=== PATIENT | female | born 1965 | race Caucasian/White ===

== ENCOUNTER → 2017-04-19 | Outpatient (CLI) | payer BC | LOC: FIMAGING 09:11 | PROVIDERS: ATTEND Obstetrics & Gynecology | DX: Z12.31 Encounter for screening mammogram for malignant neoplasm of breast (principal) | CPT/HCPCS: G0202 ==

== ENCOUNTER 2018-08-16 08:06 | Emergency (ER) | payer BC ==
--- NOTE | 2018-08-16 08:31 | EDPHY ---
H & P Stated Complaint: Arm numbness, chest tightness Time Seen by Provider: 08/16/18 08:31 HPI/ROS: CHIEF COMPLAINT: Chest pressure, paresthesias, abdominal pain HISTORY OF PRESENT ILLNESS: The patient presents the ED for evaluation of right -sided chest discomfort, mild dyspnea and right arm paresthesias. She reportedly developed the symptoms yesterday. She awoke 1 o'clock in the morning with right lower quadrant and right lower chest pain. There was associated dyspnea. It was mildly pleuritic in nature. The patient did report some posterior thigh cramping yesterday. She denies any history of prolonged immobilization or recent travel. The patient denies fever, cough or congestion. She exercises frequently without chest pain or shortness of breath. The patient did have similar symptoms in December which she did not seek care for. At that time she was having more right upper quadrant pain. The patient's surgical history is significant only for uterine polyps. REVIEW OF SYSTEMS: A comprehensive 10 point review of systems is otherwise negative aside from elements mentioned in the history of present illness. Source: Patient Exam Limitations: No limitations - Personal History LMP (Females 10-55): Now Current Tetanus/Diphtheria Vaccine: Yes Current Tetanus Diphtheria and Acellular Pertussis (TDAP): Yes - Medical/Surgical History Hx Asthma: No Hx Chronic Respiratory Disease: No Hx Diabetes: No Hx Cardiac Disease: No Hx Renal Disease: No Hx Cirrhosis: No Hx Alcoholism: No Hx HIV/AIDS: No Hx Splenectomy or Spleen Trauma: No Other PMH: uterine polyp, PNA, - Social History Smoking Status: Never smoked - Physical Exam Exam: General Appearance: Alert, no distress Eyes: Pupils equal and round no pallor or injection ENT, Mouth: Mucous membranes moist Respiratory: There are no retractions, lungs are clear to auscultation Cardiovascular: Regular rate and rhythm Gastrointestinal: Minimal tenderness to palpation right upper quadrant Neurological: A&O, normal motor function, normal sensory exam, normal cranial nerves Skin: Warm and dry, no rashes Musculoskeletal: Neck is supple nontender Extremities: symmetrical, full range of motion Constitutional: Initial Vital Signs Temperature (C) 36.9 C 08/16/18 08:12 Heart Rate 84 08/16/18 08:12 Respiratory Rate 16 08/16/18 08:12 Blood Pressure 136/80 H 08/16/18 08:12 O2 Sat (%) 97 08/16/18 08:12 O2 Delivery Mode Room Air Allergies/Adverse Reactions: No Known Allergies Allergy (Unverified 08/16/18 08:11) Home Medications: Medication Instructions Recorded Aspirin 08/16/18 Medical Decision Making - Diagnostics EKG Interpretation: EKG: Complete interpretation has been separately recorded in the [facility] archive. Summary impression: Sinus rhythm, incomplete right bundle branch block Imaging Results: Imaging Impressions Abdomen Ultrasound 08/16/18 08:45 Impression: Normal. No cholelithiasis, biliary dilation, hydronephrosis, or free fluid. Findings discussed with Emergency Department physician, Reji Virk, on at 9:29 a.m. ED Course/Re-evaluation: The patient presents to the ED for evaluation of abdominal pain and chest pain. The patient complains primarily of right lower chest pain and right upper quadrant pain. She had mild right upper quadrant tenderness on exam. The patient's EKG demonstrated a incomplete right bundle branch block. She had no hypoxemia or tachycardia. Patient's D-dimer is negative which I feel adequately excludes pulmonary embolism. The patient's EKG demonstrates no evidence of ischemia and her troponin is normal. The patient's liver function tests and lipase are also normal. She underwent a right upper quadrant ultrasound which demonstrated no evidence of gallbladder disease. I re-evaluated the patient at 10:15 a.m.. I informed her that I see no obvious explanation for her right-sided abdominal pain and chest pain. My clinical suspicion for acute coronary syndrome is low. I re-evaluated the patient at 11:00 a.m.. I have informed her that I see no obvious explanation for her symptoms. She is now asymptomatic. 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 At this point time I do feel the patient can be discharged home. She will follow up with her primary care provider Dr. Smallwood. She is given customary aftercare instructions and return precautions. Differential Diagnosis: Differential diagnosis considered includes biliary colic, pulmonary embolism, acute coronary syndrome, dehydration, esophageal spasm, metabolic derangement - Data Points Laboratory Results: Laboratory Results 08/16/18 08:35 08/16/18 08:35 08/16/18 08/16/18 08/16/18 08:44 08:35 08:35 WBC RBC Hgb Hct MCV MCH MCHC RDW Plt Count MPV Neut % (Auto) Lymph % (Auto) Sabine % (Auto) Eos % (Auto) Baso % (Auto) Nucleat RBC Rel Count Absolute Neuts (auto) Absolute Lymphs (auto) Absolute Monos (auto) Absolute Eos (auto) Absolute Basos (auto) Absolute Nucleated RBC Immature Gran % Immature Gran # D-Dimer < 0.27 ug/mLFEU ug/mLFEU (0.00-0.50) Sodium 142 mEq/L mEq/L (135-145) Potassium 4.1 mEq/L mEq/L (3.3-5.0) Chloride 107 mEq/L mEq/L (97-110) Carbon Dioxide 28 mEq/l mEq/l (22-31) Anion Gap 7 mEq/L L mEq/L (8-16) BUN 16 mg/dL mg/dL (7-23) Creatinine 0.9 mg/dL mg/dL (0.6-1.0) Estimated GFR > 60 Glucose 82 mg/dL mg/dL (70-100) Calcium 9.3 mg/dL mg/dL (8.5-10.4) Total Bilirubin 0.6 mg/dL mg/dL (0.1-1.4) Conjugated Bilirubin 0.0 mg/dL mg/dL (0.0-0.5) Unconjugated Bilirubin 0.6 mg/dL mg/dL (0.0-1.1) AST 22 IU/L IU/L (14-46) ALT 28 IU/L IU/L (9-52) Alkaline Phosphatase 31 IU/L L IU/L (38-126) POC Troponin I 0.00 ng/mL ng/mL (0.00-0.08) Troponin I < 0.012 ng/mL ng/mL (0.000-0.034) Total Protein 6.6 g/dL g/dL (6.3-8.2) Albumin 4.1 g/dL g/dL (3.5-5.0) Lipase 175 IU/L IU/L (23-300) 08/16/18 08:35 WBC 3.76 10^3/uL L 10^3/uL (3.80-9.50) RBC 5.02 10^6/uL 10^6/uL (4.18-5.33) Hgb 16.2 g/dL g/dL (12.6-16.3) Hct 46.0 % % (38.0-47.0) MCV 91.6 fL fL (81.5-99.8) MCH 32.3 pg pg (27.9-34.1) MCHC 35.2 g/dL g/dL (32.4-36.7) RDW 12.2 % % (11.5-15.2) Plt Count 200 10^3/uL 10^3/uL (150-400) MPV 9.5 fL fL (8.7-11.7) Neut % (Auto) 74.4 % H % (39.3-74.2) Lymph % (Auto) 19.9 % % (15.0-45.0) Sabine % (Auto) 4.8 % % (4.5-13.0) Eos % (Auto) 0.3 % L % (0.6-7.6) Baso % (Auto) 0.3 % % (0.3-1.7) Nucleat RBC Rel Count 0.0 % % (0.0-0.2) Absolute Neuts (auto) 2.80 10^3/uL 10^3/uL (1.70-6.50) Absolute Lymphs (auto) 0.75 10^3/uL L 10^3/uL (1.00-3.00) Absolute Monos (auto) 0.18 10^3/uL L 10^3/uL (0.30-0.80) Absolute Eos (auto) 0.01 10^3/uL L 10^3/uL (0.03-0.40) Absolute Basos (auto) 0.01 10^3/uL L 10^3/uL (0.02-0.10) Absolute Nucleated RBC 0.00 10^3/uL 10^3/uL (0-0.01) Immature Gran % 0.3 % % (0.0-1.1) Immature Gran # 0.01 10^3/uL 10^3/uL (0.00-0.10) D-Dimer Sodium Potassium Chloride Carbon Dioxide Anion Gap BUN Creatinine Estimated GFR Glucose Calcium Total Bilirubin Conjugated Bilirubin Unconjugated Bilirubin AST ALT Alkaline Phosphatase POC Troponin I Troponin I Total Protein Albumin Lipase Point of Care Test Results: Chemistry 08/16/18 08:44 POC Troponin I 0.00 ng/mL ng/mL (0.00-0.08) Departure - Departure Disposition: Home, Routine, Self-Care Clinical Impression: Chest pain, Paresthesias Condition: Good Instructions: Chest Pain (ED) Additional Instructions: 1. Please return to the ED for any recurrent symptoms, difficulty breathing, severe headache, numbness, weakness or other concerns. 2. Please schedule a follow-up appointment with your primary care provider for a recheck. 3. The workup in the emergency department is unrevealing for evidence of heart attack, blood clot, gallbladder disease or obvious blood abnormality. Referrals: LIDIA SMALLWOOD [Primary Care Provider] - As per Instructions
[2018-08-16 08:50] LABS: PLATELET COUNT 200 10^3/uL (150-400)
--- NOTE | 2018-08-16 09:39 | CPEKG ---
Test Reason : OPEN Blood Pressure : / mmHG Vent. Rate : 062 BPM Atrial Rate : 062 BPM P-R Int : 176 ms QRS Dur : 112 ms QT Int : 436 ms P-R-T Axes : 077 090 040 degrees QTc Int : 443 ms Sinus rhythm Biatrial enlargement Incomplete right bundle branch block Confirmed by Reji Virk ([id number]) on 08/16/2018 9:38:31 AM Referred By: Confirmed By:Reji Virk
[2018-08-16 11:18] VITALS: BP 114/82
== END 2018-08-16 11:21 | disposition home or self-care (01) ==
DX: R07.89 Other chest pain (principal); R20.2 Paresthesia of skin
CPT/HCPCS: 84484-PO

== ENCOUNTER → 2018-09-16 | Outpatient (CLI) | payer BC | LOC: FIMAGING 10:37 | PROVIDERS: ATTEND Obstetrics & Gynecology | DX: Z12.31 Encounter for screening mammogram for malignant neoplasm of breast (principal) ==